=== PATIENT | male | born 1965 | race African-American/Black ===

== ENCOUNTER 2016-10-26 00:30 | Emergency (ER) | payer MEDICAID, OTHER ==
[~2016-10-26] VITALS: Ht 188 cm; Wt 54.4 kg
[2016-10-26 00:40] VITALS: BP 128/108
== END 2016-10-26 02:40 | disposition left against medical advice (07) ==
LOC: ER 00:32
DX: M54.5 Low back pain (principal); M25.512 Pain in left shoulder; Z53.21 Procedure and treatment not carried out due to patient leaving prior to being seen by health care provider; V20.4XXA Motorcycle driver injured in collision with pedestrian or animal in traffic accident, initial encounter; Y93.89 Activity, other specified; Y99.8 Other external cause status; Y92.410 Unspecified street and highway as the place of occurrence of the external cause
CPT/HCPCS: 72100; 73020